=== PATIENT | female | born 2000 | race Caucasian/White ===

== ENCOUNTER 2022-02-11 19:34 | Emergency (ER) | payer OTHER ==
[~2022-02-11 19:34] MED LIST: BENTYL10 MG PO
[2022-02-11 20:16] LABS: BASOPHIL 0.7 % (0-2); EOSINOPHIL 3.2 % (0-5); HCT 43.7 % (37.0-47.0); HGB 14.9 g/dl (12.5-16.0); LYMPHOCYTE 25.4 % (15-48); MCH 29.9 pg (25.0-31.0); MCHC 34.1 g/dL (32.0-36.0); MCV 87.6 fL (78.0-100.0); MONOCYTE 9.7 % (0-12); MPV 10.1 fL (6.0-9.5); NEUTROPHIL 60.6 % (41-80); NRBC 0; PLT 297 K/uL (150-400); RBC 4.99 M/uL (4.20-5.40); RDW 13.2 % (11.5-14.0); WBC 10.8 K/uL (4.0-10.5)
[2022-02-11 20:28] LABS: ALKALINE PHOSHATASE 61 U/L (46-116); ALT 20 U/L (14-59); AST 12 U/L (15-37); BILIRUBIN - TOTAL 0.3 mg/dL (0.2-1.0); BUN 11 mg/dL (7-18); BUN/CREAT RATIO (CALC) 17.7 RATIO; CHLORIDE 103 mmol/L (98-107); CO2 (BICARBONATE) 27 mmol/L (21-32); CREATININE 0.62 mg/dL (0.51-0.95); GLOBULIN (CALCULATION) 3.8 g/dL; GLUCOSE 85 mg/dL (74-106); POTASSIUM 3.8 mmol/L (3.5-5.1); TOTAL PROTEIN 7.8 g/dL (6.4-8.2)
[2022-02-11 20:44] LABS: BILIRUBIN NEGATIVE (NEGATIVE); BLOOD NEGATIVE Ery/uL (NEGATIVE); CLARITY HAZY (CLEAR); COLOR YELLOW (YELLOW); GLUCOSE (U) 1+ mg/dL (NORMAL); LEUKOCYTES NEGATIVE Leu/uL (NEGATIVE); NITRITE NEGATIVE (NEGATIVE); PROTEIN NEGATIVE (NEGATIVE); SPECIFIC GRAVITY 1.025 (1.001-1.030); UROBILINOGEN 0.2 mg/dL (0.2-1.0)
[2022-02-11 20:58] LABS: BACTERIA 3+
== END 2022-02-11 21:38 | disposition home or self-care (01) ==
LOC: FER 19:34
PROVIDERS: Emergency Medicine
DX: R07.89 Other chest pain (principal)
CPT/HCPCS: 36415; 71045; 80053; 81001; 83880; 84484; 85025; 93005